=== PATIENT | female | born 1955 | race Caucasian/White ===

== ENCOUNTER 2018-03-21 21:34 | Outpatient (REF) | payer BC, SELFPAY ==
[2018-03-21 21:49] LABS: HCT 47.1 % (36.0-46.0); HGB 15.4 g/dL (12.0-15.5); Mean Corp. HGB Concentration 32.7 g/dL (32.0-36.0); Mean Corpuscular Hemoglobin 30.9 pg (27.0-33.0); Mean Corpuscular Volume 94.6 fL (80-95); Mean Platelet Volume 10.9 fL (8.0-11.0); Platelet Count 176 x1000/uL (130-400); RBC 4.98 m/cumm (4.00-5.20); RBC Distribution Width 12.8 % (11.7-14.6); White Blood Cell Count 5.67 k/cumm (4.4-10.8)
[2018-03-21 21:56] LABS: ALT 23 U/L (12-78); AST 20 U/L (15-37); Albumin 3.9 g/dL (3.4-5.0); Alkaline Phosphatase 46 U/L (46-116); Anion Gap 7.4 mmol/L (3-11); BUN 17 mg/dL (7-18); Bilirubin, Total 0.7 mg/dL (0.2-1.0); CO2 28.6 mmol/L (21.0-32.0); CREATININE 0.91 mg/dL (0.55-1.02); Chloride 104 mmol/L (98-107); Cholesterol 196 mg/dL (50-200); Glucose 76 mg/dL (70-100); HDL Cholesterol 80 mg/dL (40-60); LDL CHOLESTEROL 95 mg/dL (<100); Sodium 140 mmol/L (136-145); Total Protein 7.8 g/dL (6.4-8.2); Triglyceride 81 mg/dL (30-150)
== END 2018-03-21 21:54 ==
LOC: NCHCN 21:34
PROVIDERS: PCP Family Medicine; Visit Provider Family Medicine
DX: Z00.00 Encounter for general adult medical examination without abnormal findings (principal); Z85.3 Personal history of malignant neoplasm of breast; Z51.81 Encounter for therapeutic drug level monitoring; Z13.220 Encounter for screening for lipoid disorders
CPT/HCPCS: 80053; 80061; 83721; 85027

== ENCOUNTER 2018-08-08 10:07 | Outpatient (REF) | payer BC, SELFPAY ==
[2018-08-08 19:39] LABS: Magnesium 2.2 mg/dL (1.8-2.4); TSH (W/Ref FT4) 4.32 uIU/mL (0.358-3.74)
[2018-08-08 21:10] LABS: FREE T4 0.93 ng/dL (0.76-1.46)
== END 2018-08-08 10:27 ==
LOC: NCHCN 10:07
PROVIDERS: PCP Family Medicine; Visit Provider Family Medicine
DX: I49.1 Atrial premature depolarization (principal)
CPT/HCPCS: 83735; 84439; 84443

== ENCOUNTER 2018-10-07 09:57 | Outpatient (REF) | payer BC, SELFPAY ==
[2018-10-07 22:06] LABS: FREE T4 0.98 ng/dL (0.76-1.46); TSH (W/Ref FT4) 5.75 uIU/mL (0.36-3.74)
[2018-10-07 22:17] LABS: T4 9.2 ug/dL (4.5-12.5)
[2018-10-08 16:28] LABS: T3,Free 4.5 pg/ml (2.8-5.3)
[2018-10-08 16:37] LABS: T3, Total 179 ng/dl (97-169)
== END 2018-10-07 10:17 ==
LOC: NCHCN 09:57
PROVIDERS: PCP Family Medicine; Visit Provider Family Medicine
DX: R89.9 Unspecified abnormal finding in specimens from other organs, systems and tissues (principal)
CPT/HCPCS: 84436; 84439; 84443; 84480; 84481

== ENCOUNTER 2019-01-06 20:56 | Outpatient (REF) | payer BC, SELFPAY ==
[2019-01-06 21:37] LABS: TSH (W/Ref FT4) 4.73 uIU/mL (0.36-3.74)
[2019-01-06 21:59] LABS: FREE T4 0.97 ng/dL (0.76-1.46)
== END 2019-01-06 21:16 ==
LOC: NCHCN 20:56
PROVIDERS: PCP Family Medicine; Visit Provider Family Medicine
DX: R89.9 Unspecified abnormal finding in specimens from other organs, systems and tissues (principal)
CPT/HCPCS: 84439; 84443

== ENCOUNTER 2020-11-22 16:05 | Outpatient (REF) | payer MEDICARE, BC, SELFPAY ==
[2020-11-22 21:46] LABS: Anion Gap 10.2 mmol/L (3-11); BUN 14 mg/dL (7-18); CO2 27.8 mmol/L (21.0-32.0); CREATININE 0.8 mg/dL (0.55-1.02); Calcium 9.2 mg/dL (8.5-10.1); Chloride 104 mmol/L (98-107); Glucose 82 mg/dL (74-106); Potassium 4.1 mmol/L (3.5-5.1); Sodium 142 mmol/L (136-145); TSH (W/Ref FT4) 3.89 uIU/mL (0.36-3.74)
[2020-11-22 22:40] LABS: FREE T4 0.94 ng/dL (0.76-1.46)
== END 2020-11-22 16:06 | disposition home or self-care (01) ==
LOC: NCHCN 16:05
PROVIDERS: PCP Family Medicine; Visit Provider Family Medicine
DX: E03.9 Hypothyroidism, unspecified (principal); Z79.899 Other long term (current) drug therapy; Z00.00 Encounter for general adult medical examination without abnormal findings
CPT/HCPCS: 80048; 84439; 84443

== ENCOUNTER 2021-11-24 19:05 | Outpatient (REF) | payer MEDICARE, BC, SELFPAY ==
[2021-11-24 15:56] LABS: Glucose 89 mg/dL (74-106)
[2021-11-24 16:16] LABS: FREE T4 1.08 ng/dL (0.76-1.46)
== END 2021-11-24 19:06 | disposition home or self-care (01) ==
LOC: NCHCN 19:05
PROVIDERS: PCP Family Medicine; Visit Provider Family Medicine
DX: Z00.00 Encounter for general adult medical examination without abnormal findings (principal); E03.9 Hypothyroidism, unspecified
CPT/HCPCS: 82947; 84439; 84443

== ENCOUNTER 2022-11-30 10:45 | Outpatient (REF) | payer MEDICARE, BC, SELFPAY ==
[2022-11-30 15:26] LABS: HCT 48.5 % (36.0-46.0); MCH 30.7 pg (27.0-33.0); MCV 93 fL (80-95); MPV 10.2 fL (8.0-11.0); Platelet Count 229 10^3/uL (130-400); RBC 5.22 10^6/uL (3.93-5.22); RDW 12.4 % (11.7-14.6); RDW-SD 42.7 fL; WBC 6.33 10^3/uL (4.4-10.8)
[2022-11-30 16:07] LABS: ALT 31 U/L (14-59); AST 29 U/L (15-37); Albumin 3.9 g/dL (3.4-5.0); Alkaline Phosphatase 67 U/L (46-116); Anion Gap 8.4 mmol/L (3-11); BUN 14 mg/dL (7-18); Bilirubin, Total 0.7 mg/dL (0.2-1.0); CO2 28.6 mmol/L (21.0-32.0); CREATININE 0.7 mg/dL (0.55-1.02); Calcium 9.6 mg/dL (8.5-10.1); Calculated LDL 141 mg/dL (<100); Chloride 102 mmol/L (98-107); Cholesterol 241 mg/dL (<200); Estimated GFR 94.15 (mL/min/1.73m2); Glucose 82 mg/dL (74-106); HDL Cholesterol 75 mg/dL (40-60); Sodium 139 mmol/L (136-145); TSH (W/Ref FT4) 4.68 uIU/mL (0.36-3.74); Total Protein 8.1 g/dL (6.4-8.2); Triglyceride 126 mg/dL (<150)
== END 2022-11-30 10:46 | disposition home or self-care (01) ==
LOC: NCHCN 10:45
PROVIDERS: PCP Family Medicine; Visit Provider Family Medicine
DX: E03.9 Hypothyroidism, unspecified (principal); R79.89 Other specified abnormal findings of blood chemistry
CPT/HCPCS: 80053; 80061; 85027; 84439; 84443

== ENCOUNTER 2023-12-04 18:47 | Outpatient (REF) | payer MEDICARE, BC, SELFPAY ==
--- OUTSIDE RECORDS SUMMARY | 2023-12-04 18:52 | XMS_ITS ---
Author Organization Unknown Address [address] [place] [phone] Phone Care Team Providers Care Boiler Water Tester Name Role Phone GILLIAN Jimenez Attending Unavailable VON Roach Primary Unavailable Immunization Immunization Date Status Additional Notes Code Code System COVID-19, mRNA, LNP-S, PF, 1 00 mcg/0.5mL dose or 50 mcg/0.25mL dose 05/26/2020 Completed 207 CVX COVID-19, mRNA, LNP-S, PF, 1 00 mcg/0.5mL dose or 50 mcg/0.25mL dose 06/23/2020 Completed 207 CVX COVID-19, mRNA, LNP-S, PF, 1 00 mcg/0.5mL dose or 50 mcg/0.25mL dose 03/08/2021 Completed 207 CVX Results XR FOOT LT 3V MIN* - Complet ed: 05/10/2021 16:08 LOINC: LEFT FOOT - 3 VIEWS: Three weightbearing views of the left foot reveal no evidence of fracture nor diastasis of the Lisfranc joint. Hallux valgus is noted. Mild degenerative changes in the great toe metatarsophalangeal joint. No osseous lesions nor erosions. No pes planus. No inferior calcaneal spur. IMPRESSION: Hallux valgus. Dictated by: HITESH HORN MD Transcribed by: ROSA 05/10/21/14:13 D 05/10/2021 12:08:21 [id number] Electronically Reviewed and Signed By: ABHI HORN MD 05/10/21 14:26 Copy for: 185 HEALTH INFORMATION MGMT XR FOOT RT 3V MIN* - Complet ed: 05/10/2021 16:08 LOINC: RIGHT FOOT - 3 VIEWS: Three weightbearing views of the right foot reveal advanced uniform narrowing of the great toe metatarsophalangeal joint but without evidence of hallux valgus at this level. Other MTP joints appear unremarkable. No fracture nor diastasis of the Lisfranc joint. Dictated by: ABHI HORN MD Transcribed by: ROSA 05/10/2114:16 D 05/10/2021 12:10:15 [id number] Electronically Reviewed and Signed By: ABHI HORN MD 05/10/21 14:26 Copy for: 185 HEALTH INFORMATION MGMT Social History Type Status Start Date End Date Code Code Syst em Smoking History Never smoker (Never Smoked) 432082249 SNOMED CT Sex Female Hospital Discharge Instructions Should you have any questions prior to discharge, please contact a member of your healthcare team. If you have left the hospital and have any questions, please contact your primary care physician. Reason For Referral No Data Found Allergies and Adverse Reactions Allergy Substance Reaction Severity Start Date Concern Status Code Code System CLINDAMYCIN Hives (SNOMED-CT: 050223045) Active 2582 RxNorm TAPE Itching (SNOMED-CT: 114375176) Moderate Active POLYSPORIN Itching (SNOMED-CT: 639126374) Moderate Active 95111 RxNorm BAND-AID BRAND ADHESIVE BANDAGES Itching (SNOMED-CT: 445967544) Moderate Active 6387386 RxNorm Plan of Treatment MM SCREEN BILAT 08/23/2023 MM SCREEN BILAT 12/18/2021 PRE-OP TESTING 06/10/2021 PRE-OP COVID-19 TESTING 06/10/2021 PRE-OP TESTING 05/31/2021 PRE-OP COVID-19 TESTING 05/31/2021 Encounters Encounter Diagnosis Start Date Code Code Sys tem 05/10/2021 [id number] SNOMED-CT Personal Care Team Section Performer Name Performer Role Active Date Inactive Da te
--- OUTSIDE RECORDS SUMMARY | 2023-12-04 18:53 | XMS_ITS ---
Author Organization Unknown Address [address] [place] [address] [phone] Phone Care Team Providers Care Credit Director Name Role Phone GILLIAN Jimenez Attending Unavailable MALIA Neumann INDEPENDENT CROP CONSULTANT Unavailable VON Roach Primary Unavailable Immunization Immunization Date Status Additional Notes Code Code System COVID-19, mRNA, LNP-S, PF, 1 00 mcg/0.5mL dose or 50 mcg/0.25mL dose 05/26/2020 Completed 207 CVX COVID-19, mRNA, LNP-S, PF, 1 00 mcg/0.5mL dose or 50 mcg/0.25mL dose 06/23/2020 Completed 207 CVX COVID-19, mRNA, LNP-S, PF, 1 00 mcg/0.5mL dose or 50 mcg/0.25mL dose 03/08/2021 Completed 207 CVX Results SED RATE* - Collect Date/Paul e: 06/13/2021 07:30 ID: [id number] [address] [place] [address], [address] LOINC: 4537-7 Test Value Unit Reference Range Code Code System Flag SED. RATE 16 mm/hr L=0 H=30 4537-7 LOINC C REACTIVE PROTEIN HIGH SENS ITIVITY* - Collect Date/Time: 06/13/2021 07:30 ID: [id number] [address] [place] [address], [address] LOINC: 50108-9 Test Value Unit Reference Range Code Code System Flag CRP-HIGH SENS. 4.80 mg/L L=0.00 H=3.00 17620-7 LOINC H CRP-HIGH SENS 0.48 mg/dL L=0.00 H=0.30 40725-8 LOINC H XR C-ARM FOOT 2V RT NO CHARG E - Completed: 06/13/2021 11:26 LOINC: FLUOROSCOPY:Fluoroscopy was provided for Dr. Mc. Please see Procedure Note for details. Fluoro time 4.43 sec/Cumulative dose 0.075 mGy Dictated by: CEO MENDEZ BROOKE MD Transcribed by: RAJANI 06/13/2112:20 D Sunday, June 13, 2021 11:44:08 AM [id number] Electronically Reviewed and Signed By: MENDEZ BROOKE MD 06/13/21 12:37 Copy for: VON Roach via fax Copy for: 185 HEALTH INFORMATION MGMT DISCHARGED XR FOOT RT 3V MIN* - Complet ed: 06/13/2021 11:32 LOINC: RIGHT FOOT -3 VIEWS PORTABLY :Comparison is May 09. The patient is s/p bunionectomy at the medial 1st metatarsal head. There is mild residual post- surgical air in the soft tissues. Dictated by: CEO MENDEZ BROOKE MD Transcribed by: RAJANI 06/13/2111:25 D Sunday, June 13, 2021 9:21:55 AM [id number] Electronically Reviewed and Signed By: MENDEZ BROOKE MD 06/13/21 11:47 Copy for: VON Roach via fax Copy for: 185 HEALTH INFORMATION MGMT DISCHARGED Social History Type Status Start Date End Date Code Code Syst em Smoking History Never smoker (Never Smoked) 800693209 SNOMED CT Sex Female Vital Signs Vital Sign Value Unit [place] Value [place] Unit Date/Time Recent/Initial? Code Code System Body Mass Index 20.18 kg/m2 05/30/2021 11:24 Initial 07887 -5 LOINC Systolic Blood Pressure 158 mm[Hg] 06/13/2021 09:43 Initial 8480- 6 LOINC Diastolic Blood Pressure 81 mm[Hg] 06/13/2021 09:43 Initial 8462- 4 LOINC Body Surface Area 1.62 m2 05/30/2021 11:24 Initial 3140- 1 LOINC Height 167.640 0 cm 66.00 in 05/30/2021 11:24 Initial 8302- 2 LOINC O2 Saturation 100 % 2021 09:43 Initial 80030 -5 LOINC Pulse 87.0 /min 06/13/2021 09:43 Initial 8867- 4 LOINC Respiration 18 /min 06/14/19 09:43 Initial 9279- 1 LOINC Temperature 36.0 Annette 96.8 F 06/14/19 09:43 Initial 8310- 5 LOINC Weight 56.70 kg 125.00 lbs 05/30/2021 11:24 Initial 71277 -7 LOINC Hospital Discharge Instructions Should you have any questions prior to discharge, please contact a member of your healthcare team. If you have left the hospital and have any questions, please contact your primary care physician. Reason For Referral No Data Found Procedures Procedure Name Date Status Code Code Syste m Hallux Rigidus w/Cheilectomy 1st MP Jt w/o Implt 06/13/2021 completed 84851 CPT Anesthesia, Open Proc, Bones , Lower Leg/Ankle/Foot; NOS 06/13/2021 completed 69262 CPT Allergies and Adverse Reactions Allergy Substance Reaction Severity Start Date Concern Status Code Code System CLINDAMYCIN Hives (SNOMED-CT: 336887188) Active 2582 RxNorm TAPE Itching (SNOMED-CT: 324098735) Moderate Active POLYSPORIN Itching (SNOMED-CT: 259856040) Moderate Active 02836 RxNorm BAND-AID BRAND ADHESIVE BANDAGES Itching (SNOMED-CT: 852074135) Moderate Active 3002721 RxNorm Plan of Treatment MM SCREEN BILAT 08/23/2023 MM SCREEN BILAT 12/18/2021 PRE-OP TESTING 06/10/2021 PRE-OP COVID-19 TESTING 06/10/2021 PRE-OP TESTING 05/31/2021 PRE-OP COVID-19 TESTING 05/31/2021 Encounters Encounter Diagnosis Start Date Code Code Sys tem Hallux rigidus, right foot 06/13/2021 S NOMED-CT Personal Care Team Section Performer Name Performer Role Active Date Inactive Da te
--- OUTSIDE RECORDS SUMMARY | 2023-12-04 18:53 | XMS_ITS ---
Author Organization Unknown Address [address], [place] [phone] Phone Care Team Providers Care Plate Shear Operator Name Role Phone GILLIAN Jimenez Attending Unavailable [...] mcg/0.25mL dose 03/08/2021 Completed 207 CVX Results CBC W/ DIFFERENTIAL* - Colle ct Date/Time: 05/31/2021 11:04 [facility] ID: [id number] [address] [place] [address], [address] LOINC: 01654-1 Test Value Unit Reference Range Code Code System Flag WBC 6.89 th/cmm L=5.00 H=10.00 6690-2 LOINC NEUT % 58.3 % L=40.0 H=80.0 LYMPH % 28.2 % L=10.0 H=50.0 MONO % 7.3 % L=2.0 H=12.0 46370-5 LOINC EOS % 4.6 % L=0.0 H=8.0 BASO % 1.2 % L=0.0 H=3.0 IG % 0.4 % L=0.0 H=1.1 2514-8 LOINC NRBC % 0.0 % L=0.0 H=0.0 34993-2 LOINC NEUT abs count 4.0 th/cmm L=1.6 H=8.4 751-8 LOINC LYMPH abs count 1.9 th/cmm L=1.5 H=4.0 731-0 LOINC MONO abs count 0.5 th/cmm L=0.2 H=1.0 742-7 LOINC EOS abs count 0.3 th/cmm L=0.0 H=0.5 711-2 LOINC BASO abs count 0.1 th/cmm L=0.0 H=0.2 704-7 LOINC IG abs count 0.0 th/cmm L=0.0 H=0.1 96341-5 LOINC NRBC abs count 0.0 mil/cmm L=0.0 H=0.0 00507-8 LOINC RBC 5.11 mil/cmm L=3.90 H=5.40 789-8 LOINC HEMOGLOBIN 16.0 gm/dL L=12.0 H=16.0 718-7 LOINC HEMATOCRIT 48 % L=37 H=47 4544-3 LOINC H MCV 93 fL L=82 H=92 787-2 LOINC H MCH 31.3 pg L=27.0 H=31.0 785-6 LOINC H MCHC 33.6 % L=32.0 H=36.0 786-4 LOINC RDW-SD 42.3 fL L=39.0 H=49.0 788-0 LOINC PLATELET COUNT 220 th/cmm L=150 H=450 777-3 LOINC BASIC METABOLIC PANEL (BMP) - Collect Date/Time: 05/31/2021 11:04 [facility] ID: [id number] [address] [place], [place], [address] LOINC: 85028-7 Test Value Unit Reference Range Code Code System Flag GLUCOSE 94 mg/dL L=70 H=116 2345-7 LOINC BUN 14 mg/dL L=6 H=25 3094-0 LOINC CREATININE 0.74 mg/dL L=0.51 H=0.95 2160-0 LOINC SODIUM SERUM 137 mmol/L L=136 H=145 2951-2 LOINC POTASSIUM SERUM 4.2 mmol/L L=3.4 H=5.2 2823-3 LOINC CHLORIDE SERUM 101 mmol/L L=96 H=110 2075-0 LOINC CARBON DIOXIDE (CO2) 28 mmol/L L=22 H=34 2028-9 LOINC ANION GAP 8.4 mmol/L 97352-0 LOINC CALCIUM SERUM 9.4 mg/dL L=8.2 H=10.2 15905-1 LOINC AGE 65 years eGFR (non-Afr.Amer.) 79 mL/min 04065-6 LOINC eGFR (Afr-Swedish) 95 mL/min 99020-1 LOINC Social History Type Status Start Date End Date Code Code Syst em Smoking History Never smoker (Never Smoked) 691753060 SNOMED CT Sex Female Hospital Discharge Instructions Should you have any questions prior to discharge, please contact a member of your healthcare team. If you have left the hospital and have any questions, please contact your primary care physician. Reason For Referral No Data Found Allergies and Adverse Reactions Allergy Substance Reaction Severity Start Date Concern Status Code Code System CLINDAMYCIN Hives (SNOMED-CT: 094626258) Active 2582 RxNorm TAPE Itching (SNOMED-CT: 247395339) Moderate Active POLYSPORIN Itching (SNOMED-CT: 463988643) Moderate Active 06531 RxNorm BAND-AID BRAND ADHESIVE BANDAGES Itching (SNOMED-CT: 800979980) Moderate Active 8970176 RxNorm Plan of Treatment MM SCREEN BILAT 08/23/2023 MM SCREEN BILAT 12/18/2021 PRE-OP TESTING 06/10/2021 PRE-OP COVID-19 TESTING 06/10/2021 PRE-OP TESTING 05/31/2021 PRE-OP COVID-19 TESTING 05/31/2021 Encounters Encounter Diagnosis Start Date Code Code Sys tem Encounter for other preprocedural examination 06/01/19 22 SNOMED-CT Personal Care Team Section Performer Name Performer Role Active Date Inactive Da te
--- OUTSIDE RECORDS SUMMARY | 2023-12-04 18:53 | XMS_ITS ---
Author Organization Unknown Address [address] [place] [phone] Phone Care Team Providers Care Architecture Internship Name Role Phone GILLIAN Jimenez Attending Unavailable [...] 50 mcg/0.25mL dose 03/08/2021 Completed 207 CVX Social History Type Status Start Date End Date Code Code Syst em Smoking History Never smoker (Never Smoked) 566440819 SNOMED CT Sex Female Hospital Discharge Instructions Should you have any questions prior to discharge, please contact a member of your healthcare team. If you have left the hospital and have any questions, please contact your primary care physician. Reason For Referral No Data Found Allergies and Adverse Reactions Allergy Substance Reaction Severity Start Date Concern Status Code Code System CLINDAMYCIN Hives (SNOMED-CT: 859726301) Active 2582 RxNorm TAPE Itching (SNOMED-CT: 561533906) Moderate Active POLYSPORIN Itching (SNOMED-CT: 352058056) Moderate Active 38595 RxNorm BAND-AID BRAND ADHESIVE BANDAGES Itching (SNOMED-CT: 973042704) Moderate Active 1634667 RxNorm Plan of Treatment MM SCREEN BILAT 08/23/2023 MM SCREEN BILAT 12/18/2021 PRE-OP TESTING 06/10/2021 PRE-OP COVID-19 TESTING 06/10/2021 PRE-OP TESTING 05/31/2021 PRE-OP COVID-19 TESTING 05/31/2021 Encounters Encounter Diagnosis Start Date Code Code Sys tem Postoperative care 06/16/2021 975386075 SNOMED-CT Personal Care Team Section Performer Name Performer Role Active Date Inactive Da te
--- OUTSIDE RECORDS SUMMARY | 2023-12-04 18:53 | XMS_ITS ---
Author Organization Unknown Address [address] [place], [place] [phone] Phone Care Team Providers Care Kiln Burner Helper Name Role Phone GILLIAN Jimneez Attending Unavailable VON Roach Primary Unavailable Immunization [...] mcg/0.25mL dose 03/08/2021 [address] [facility] [place] ect Date/Time: 06/10/2021 09:40 [facility] ID: [id number] [address] [place], [place], [id number] LOINC: 58566-4 Test Value Unit Reference Range Code Code System Flag Tier- PRE-OP 15033-3 LOINC SARS COV2 RNA: NEGATIVE REFERENCE RANGE: NEGAT 37230-6 L OINC Social History Type Status Start Date End Date Code Code Syst em Smoking History Never smoker (Never Smoked) 531427579 SNOMED CT Sex Female Hospital Discharge Instructions Should you have any questions prior to discharge, please contact a member of your healthcare team. If you have left the hospital and have any questions, please contact your primary care physician. Reason For Referral No Data Found Allergies and Adverse Reactions Allergy Substance Reaction Severity Start Date Concern Status Code Code System CLINDAMYCIN Hives (SNOMED-CT: 794354563) Active 2582 RxNorm TAPE Itching (SNOMED-CT: 806232895) Moderate Active POLYSPORIN Itching (SNOMED-CT: 353285623) Moderate Active 11891 RxNorm BAND-AID BRAND ADHESIVE BANDAGES Itching (SNOMED-CT: 495228897) Moderate Active 8428880 RxNorm Plan of Treatment MM SCREEN BILAT 08/23/2023 MM SCREEN BILAT 12/18/2021 PRE-OP TESTING 06/10/2021 PRE-OP COVID-19 TESTING 06/10/2021 PRE-OP TESTING 05/31/2021 PRE-OP COVID-19 TESTING 05/31/2021 Encounters Encounter Diagnosis Start Date Code Code Sys tem Pre-surgery testing 06/10/2021 586512488 SNOMED-C T Personal Care Team Section Performer Name Performer Role Active Date Inactive Da te
--- OUTSIDE RECORDS SUMMARY | 2023-12-04 18:54 | XMS_ITS ---
Author Organization Unknown Address [address] [place] [phone] Phone Care Team Providers Care Chicken Raiser Name Role Phone GILLIAN Jimenez Attending Unavailable [...] em Smoking History Never smoker (Never Smoked) 808045735 SNOMED CT Sex Female Hospital Discharge Instructions Should you have any questions prior to discharge, please contact a member of your healthcare team. If you have left the hospital and have any questions, please contact your primary care physician. Reason For Referral No Data Found Allergies and Adverse Reactions Allergy Substance Reaction Severity Start Date Concern Status Code Code System CLINDAMYCIN Hives (SNOMED-CT: 237782659) Active 2582 RxNorm TAPE Itching (SNOMED-CT: 017631451) Moderate Active POLYSPORIN Itching (SNOMED-CT: 126297776) Moderate Active 17867 RxNorm BAND-AID BRAND ADHESIVE BANDAGES Itching (SNOMED-CT: 028337037) Moderate Active 0944371 RxNorm Plan of Treatment MM SCREEN BILAT 08/23/2023 MM SCREEN BILAT 12/18/2021 PRE-OP TESTING 06/10/2021 PRE-OP COVID-19 TESTING 06/10/2021 PRE-OP TESTING 05/31/2021 PRE-OP COVID-19 TESTING 05/31/2021 Encounters Encounter Diagnosis Start Date Code Code Sys tem Encounter for other orthopedic aftercare 08/01/2021 SNOMED-CT Personal Care Team Section Performer Name Performer Role Active Date Inactive Da te
--- OUTSIDE RECORDS SUMMARY | 2023-12-04 18:54 | XMS_ITS ---
Author Organization Unknown Address [address] [place] [address] [phone] Phone Care Team Providers Care Seat Cover Maker Name Role Phone GILLIAN Jimenez Attending Unavailable [...] em Smoking History Never smoker (Never Smoked) 765912277 SNOMED CT Sex Female Hospital Discharge Instructions Should you have any questions prior to discharge, please contact a member of your healthcare team. If you have left the hospital and have any questions, please contact your primary care physician. Reason For Referral No Data Found Allergies and Adverse Reactions Allergy Substance Reaction Severity Start Date Concern Status Code Code System CLINDAMYCIN Hives (SNOMED-CT: 959305820) Active 2582 RxNorm TAPE Itching (SNOMED-CT: 931404611) Moderate Active POLYSPORIN Itching (SNOMED-CT: 892940434) Moderate Active 36625 RxNorm BAND-AID BRAND ADHESIVE BANDAGES Itching (SNOMED-CT: 461719332) Moderate Active 9620546 RxNorm Plan of Treatment MM SCREEN BILAT 08/23/2023 MM SCREEN BILAT 12/18/2021 PRE-OP TESTING 06/10/2021 PRE-OP COVID-19 TESTING 06/10/2021 PRE-OP TESTING 05/31/2021 PRE-OP COVID-19 TESTING 05/31/2021 Encounters Encounter Diagnosis Start Date Code Code Sys tem Follow-up orthopedic assessment 08/22/2021 069854324 SNOMED-CT Personal Care Team Section Performer Name Performer Role Active Date Inactive Da te
--- OUTSIDE RECORDS SUMMARY | 2023-12-04 18:54 | XMS_ITS ---
Author Organization Unknown Address [address] [place] [phone] Phone Care Team Providers Care Fire Prevention Research Engineer Name Role Phone GILLIAN Jimenez Attending Unavailable [...] em Smoking History Never smoker (Never Smoked) 792464636 SNOMED CT Sex Female Hospital Discharge Instructions Should you have any questions prior to discharge, please contact a member of your healthcare team. If you have left the hospital and have any questions, please contact your primary care physician. Reason For Referral No Data Found Allergies and Adverse Reactions Allergy Substance Reaction Severity Start Date Concern Status Code Code System CLINDAMYCIN Hives (SNOMED-CT: 637178726) Active 2582 RxNorm TAPE Itching (SNOMED-CT: 434377199) Moderate Active POLYSPORIN Itching (SNOMED-CT: 583957519) Moderate Active 42973 RxNorm BAND-AID BRAND ADHESIVE BANDAGES Itching (SNOMED-CT: 925756159) Moderate Active 6816753 RxNorm Plan of Treatment MM SCREEN BILAT 08/23/2023 MM SCREEN BILAT 12/18/2021 PRE-OP TESTING 06/10/2021 PRE-OP COVID-19 TESTING 06/10/2021 PRE-OP TESTING 05/31/2021 PRE-OP COVID-19 TESTING 05/31/2021 Encounters Encounter Diagnosis Start Date Code Code Sys tem Postoperative care 06/27/2021 061851522 SNOMED-CT Personal Care Team Section Performer Name Performer Role Active Date Inactive Da te
--- OUTSIDE RECORDS SUMMARY | 2023-12-04 18:55 | XMS_ITS ---
Author Organization Unknown Address [address] [place] [phone] Phone Care Team Providers Care Field Recorder Name Role Phone GILLIAN Jimenez Attending Unavailable [...] em Smoking History Never smoker (Never Smoked) 851769448 SNOMED CT Sex Female Hospital Discharge Instructions Should you have any questions prior to discharge, please contact a member of your healthcare team. If you have left the hospital and have any questions, please contact your primary care physician. Reason For Referral No Data Found Allergies and Adverse Reactions Allergy Substance Reaction Severity Start Date Concern Status Code Code System CLINDAMYCIN Hives (SNOMED-CT: 122920128) Active 2582 RxNorm TAPE Itching (SNOMED-CT: 759249434) Moderate Active POLYSPORIN Itching (SNOMED-CT: 791777235) Moderate Active 40830 RxNorm BAND-AID BRAND ADHESIVE BANDAGES Itching (SNOMED-CT: 253237748) Moderate Active 3921357 RxNorm Plan of Treatment MM SCREEN BILAT 08/23/2023 MM SCREEN BILAT 12/18/2021 PRE-OP TESTING 06/10/2021 PRE-OP COVID-19 TESTING 06/10/2021 PRE-OP TESTING 05/31/2021 PRE-OP COVID-19 TESTING 05/31/2021 Encounters Encounter Diagnosis Start Date Code Code Sys tem 11/15/2021 [id number] SNOMED-CT Personal Care Team Section Performer Name Performer Role Active Date Inactive Da te
--- OUTSIDE RECORDS SUMMARY | 2023-12-04 18:55 | XMS_ITS ---
Author Organization Unknown Address [address] [place] [address] [phone] Phone Care Team Providers Care Construction Supervisor/Carpenter Name Role Phone JOSE Rico Attending Unavailable VON Roach Primary Unavailable Immunization [...] em Smoking History Never smoker (Never Smoked) 346411921 SNOMED CT Sex Female Hospital Discharge Instructions Should you have any questions prior to discharge, please contact a member of your healthcare team. If you have left the hospital and have any questions, please contact your primary care physician. Reason For Referral No Data Found Allergies and Adverse Reactions Allergy Substance Reaction Severity Start Date Concern Status Code Code System CLINDAMYCIN Hives (SNOMED-CT: 417306917) Active 2582 RxNorm TAPE Itching (SNOMED-CT: 315157608) Moderate Active POLYSPORIN Itching (SNOMED-CT: 815199695) Moderate Active 38981 RxNorm BAND-AID BRAND ADHESIVE BANDAGES Itching (SNOMED-CT: 190439840) Moderate Active 8348971 RxNorm Plan of Treatment MM SCREEN BILAT 08/23/2023 MM SCREEN BILAT 12/18/2021 PRE-OP TESTING 06/10/2021 PRE-OP COVID-19 TESTING 06/10/2021 PRE-OP TESTING 05/31/2021 PRE-OP COVID-19 TESTING 05/31/2021 Encounters Encounter Diagnosis Start Date Code Code Sys tem Palpitations 01/21/2023 58484384 SNOMED-CT Personal Care Team Section Performer Name Performer Role Active Date Inactive Da te
--- OUTSIDE RECORDS SUMMARY | 2023-12-04 18:55 | XMS_ITS ---
Author Organization Unknown Address [address] [place] [address] [phone] Phone Care Team Providers Care Cullet Washer Name Role Phone ISAMAR SHIN Attending Unavailable VON Roach Primary Unavailable Immunization [...] mcg/0.25mL dose 03/08/2021 Completed 207 CVX Results MM SCREENING BILAT MAMMO W T CARRIE W CAD - Completed: 12/18/2021 10:13 [facility] [place], [place] [address] PACS PEST CONTROL WORKER REPORT Patient Name: JUWAN PETERS MRN: Sex: : Age: [id number] F 1955 66 Account: Accession: Admit: StayType: [id number] 12/18/2021 O/P Ordered: Order ID: Submitted: Ordering Provider: 12/18/2021 09:54 [id number] [facility] ALEIDA PENN Completed: Technologist: Resulted: 12/18/2021 10:13 BMM 12/18/2021 10:38 Study Description: MM SCREENING BILAT MAMMO W ZULMA W CAD Study Reason: SCREENING TECHNIQUE: Bilateral full field digital CC and MLO mammographic images were obtained with 3D tomosynthesis and utilizing computer aided detection (CAD). COMPARISON: Prior mammograms were reviewed. Right lumpectomy for malignancy in 2013 FINDINGS: There has been no significant change in the appearance and distribution of the fibroglandular tissue. There is continued stable appearance of the right breast lumpectomy site including the scarring-architectural distortion and dystrophic calcification. No new significant masses nor malignant appearing microcalcifications in either breast. There is no significant architectural distortion nor skin thickening-retraction. IMPRESSION: 1. Stable benign findings. No radiographic evidence of malignancy Stable appearance of the right breast lumpectomy site. BiRads Category: 2-benign findings. Breast Density Category: C] [Breast density Category C or D implies that the patient has dense breast tissue. Dense breast tissue can make it harder to find cancer on a mammogram. Dense breast tissue is also associated with an increased risk of breast cancer. This information about the result of the mammogram report was provided to the patient to raise their awareness. Use this report when you speak with the patient about their risks for breast cancer, which includes their family history. At that time, you may recommend additional screening tests (Ultrasound or MRI) as these tests may add significant information. A negative radiographic report should not delay biopsy if a dominant or clinically suspicious mass is present. Up to ten percent of cancers are not identified on mammography. A negative report may reinforce clinical impression. Adenosis and dense breasts may obscure an underlying neoplasm. False positive reports average 6 to 10%. Patient will receive a letter notifying them of these results. Report Digitally Signed by Tam Hernandez on 12/18/2021 10:38 AM EDT Social History Type Status Start Date End Date Code Code Syst em Smoking History Never smoker (Never Smoked) [id number] SNOMED CT Sex Female Hospital Discharge Instructions Should you have any questions prior to discharge, please contact a member of your healthcare team. If you have left the hospital and have any questions, please contact your primary care physician. Reason For Referral No Data Found Allergies and Adverse Reactions Allergy Substance Reaction Severity Start Date Concern Status Code Code System CLINDAMYCIN Hives (SNOMED-CT: 136284343) Active 2582 RxNorm TAPE Itching (SNOMED-CT: 871866416) Moderate Active POLYSPORIN Itching (SNOMED-CT: 727130551) Moderate Active 91578 RxNorm BAND-AID BRAND ADHESIVE BANDAGES Itching (SNOMED-CT: 958297058) Moderate Active 2352826 RxNorm Plan of Treatment MM SCREEN BILAT 08/23/2023 MM SCREEN BILAT 12/18/2021 PRE-OP TESTING 06/10/2021 PRE-OP COVID-19 TESTING 06/10/2021 PRE-OP TESTING 05/31/2021 PRE-OP COVID-19 TESTING 05/31/2021 Encounters Encounter Diagnosis Start Date Code Code Sys tem Encounter for screening mamm ogram for malignant neoplasm of breast 12/18/2021 SNOMED-CT Personal Care Team Section Performer Name Performer Role Active Date Inactive Da te
--- OUTSIDE RECORDS SUMMARY | 2023-12-04 18:56 | XMS_ITS ---
Author Organization Unknown Address [address] [place] [address] [phone] Phone Care Team Providers Care Ross Furnace Operator Name Role Phone ISAMAR SHIN Attending Unavailable VON REDDY MD Primary Unavailable Results MM DIGITAL SCR W ZULMA BILATE RAL - Completed: 12/09/2020 10:13 LOINC: Digital mammograms were inte rpreted according to the usual protocol including computer analysis with CADx system including tomosynthesis. Both CC and MLO views of both breasts were performed and compared to prior mammograms dating back to 2014, the most recent being June 2019. The patient underwent right breast lumpectomy for malignancy in 2013 followed by radiation therapy. There is scarring and dystrophic calcification at the right breast lumpectomy site again noted. This has slightly further progressed. There is also a benign macrocalcification anteriorly in the right breast again noted. Benign microcalcification group in the left breast is again noted. IMPRESSION: 1. Scarring and dystrophic calcification again noted at the right breast lumpectomy site. 2. Benign left breast findings. BI-RADS Assessment: Category 2. Benign findings. BREAST DENSITY: c. The breasts are heterogeneously dense which may obscure small masses. TECHNOLOGIST: RT Silvano (R) (M) Dictated by: HITESH HORN M.D. RADIOLOGIST Transcribed by: SUKUMAR 12/10/2008:42 D 12/09/2020 09:02:46 [id number] Electronically Reviewed and Signed By: ADALI DENTON M.D. RADIOLOGIST 12/12/20 08:55 Copy for: ISAMAR SHIN via fax Copy for: VON REDDY MD via link Social History Type Status Start Date End Date Code Code Syst em Smoking History Never smoker (Never Smoked) [id number] SNOMED CT Sex Female Hospital Discharge Instructions Should you have any questions prior to discharge, please contact a member of your healthcare team. If you have left the hospital and have any questions, please contact your primary care physician. Reason For Referral No Data Found Allergies and Adverse Reactions Allergy Substance Reaction Severity Start Date Concern Status Code Code System CLINDAMYCIN Hives (SNOMED-CT: 617144665) Active 2582 RxNorm TAPE Itching (SNOMED-CT: 069630777) Moderate Active POLYSPORIN Itching (SNOMED-CT: 878747073) Moderate Active 46007 RxNorm BAND-AID BRAND ADHESIVE BANDAGES Itching (SNOMED-CT: 970999711) Moderate Active 9293074 RxNorm Plan of Treatment MM SCREEN BILAT 08/23/2023 MM SCREEN BILAT 12/18/2021 PRE-OP TESTING 06/10/2021 PRE-OP COVID-19 TESTING 06/10/2021 PRE-OP TESTING 05/31/2021 PRE-OP COVID-19 TESTING 05/31/2021 Encounters Encounter Diagnosis Start Date Code Code Sys tem Encounter for screening mamm ogram for malignant neoplasm of breast 12/09/2020 SNOMED-CT Personal Care Team Section Performer Name Performer Role Active Date Inactive Da te
--- OUTSIDE RECORDS SUMMARY | 2023-12-04 18:56 | XMS_ITS ---
Author Organization Unknown Address [address] [place] [address] [phone] Phone Care Team Providers Care Environmental Health Inspector Name Role Phone VON Roach Attending Unavailable Immunization Immunization Date Status Additional Notes Code Code System COVID-19, mRNA, LNP-S, PF, 1 00 mcg/0.5mL dose or 50 mcg/0.25mL dose 05/26/2020 Completed 207 CVX COVID-19, mRNA, LNP-S, PF, 1 00 mcg/0.5mL dose or 50 mcg/0.25mL dose 06/23/2020 Completed 207 CVX COVID-19, mRNA, LNP-S, PF, 1 00 mcg/0.5mL dose or 50 mcg/0.25mL dose 03/08/2021 Completed 207 CVX Results *MM SCREENING BILAT MAMMO W ZULMA W CAD - Completed: 08/23/2023 10:13 LOINC: [facility] [place], [place] [id number] [place] [address] PACS NET FISHER REPORT Patient Name: JUWAN PETERS MRN: Sex: : Age: [id number] O 1955 67 Account: Accession: Admit: StayType: [id number] 08/23/2023 O Ordered: Order ID: Submitted: Ordering Provider: 08/23/2023 09:47 [id number] BARRY BROOKS Completed: Technologist: Resulted: 08/23/2023 10:03 BMM 08/23/2023 10:26 FINAL REPORT EXAM: MM SCREENING BILAT MAMMO W ZULMA W CAD CLINICAL HISTORY: Reason for Mammo: Screening. TECHNIQUE: Bilateral full field digital CC and MLO mammographic images were obtained with 3D tomosynthesis and utilizing computer aided detection (CAD). COMPARISON: Prior mammograms were reviewed. Patient underwent right breast lumpectomy for malignancy in 2013. FINDINGS: There has been no significant change in the appearance and distribution of the fibroglandular tissue. Right breast lumpectomy site remains stable. There are no new spiculated masses nor malignant appearing microcalcification groups. There is no significant new architectural distortion nor skin thickening-retraction. IMPRESSION: Stable benign-appearing findings. No radiographic evidence of malignancy. BI-RADS Category 2 - Benign Findings Breast Density - Category C - Heterogeneously dense Breast density Category C or D implies that [...] a letter notifying them of these results. Electronically signed by: Tam Hernandez Dictated: 08/23/2023 10:26 Social History Type Status Start Date End Date Code Code Syst em Smoking History Never smoker (Never Smoked) [id number] SNOMED CT Sex Female Hospital Discharge Instructions Should you have any questions prior to discharge, please contact a member of your healthcare team. If you have left the hospital and have any questions, please contact your primary care physician. Reason For Referral No Data Found Allergies and Adverse Reactions Allergy Substance Reaction Severity Start Date Concern Status Code Code System CLINDAMYCIN Hives (SNOMED-CT: 088832950) Active 2582 RxNorm TAPE Itching (SNOMED-CT: 035762554) Moderate Active POLYSPORIN Itching (SNOMED-CT: 688945942) Moderate Active 32045 RxNorm BAND-AID BRAND ADHESIVE BANDAGES Itching (SNOMED-CT: 869203105) Moderate Active 1012543 RxNorm Plan of Treatment MM SCREEN BILAT 08/23/2023 MM SCREEN BILAT 12/18/2021 PRE-OP TESTING 06/10/2021 PRE-OP COVID-19 TESTING 06/10/2021 PRE-OP TESTING 05/31/2021 PRE-OP COVID-19 TESTING 05/31/2021 Encounters Encounter Diagnosis Start Date Code Code Sys tem Screening mammography 08/23/2023 [id number] SNOMED -CT Personal Care Team Section Performer Name Performer Role Active Date Inactive Da te
--- OUTSIDE RECORDS SUMMARY | 2023-12-04 18:56 | XMS_ITS ---
Author Organization Unknown Address [address] [place] [address] [phone] Phone Care Team Providers Care Ethnographer Name Role Phone JOSE Rico MD Attending Unavailable VON REDDY MD Primary Unavailable Social History Type Status Start Date End Date Code Code Syst em Smoking History Never smoker (Never Smoked) 475910381 SNOMED CT Sex Female Hospital Discharge Instructions Should you have any questions prior to discharge, please contact a member of your healthcare team. If you have left the hospital and have any questions, please contact your primary care physician. Reason For Referral No Data Found Allergies and Adverse Reactions Allergy Substance Reaction Severity Start Date Concern Status Code Code System CLINDAMYCIN Hives (SNOMED-CT: 974314237) Active 2582 RxNorm TAPE Itching (SNOMED-CT: 702595952) Moderate Active POLYSPORIN Itching (SNOMED-CT: 061915368) Moderate Active 85771 RxNorm BAND-AID BRAND ADHESIVE BANDAGES Itching (SNOMED-CT: 393716897) Moderate Active 3034511 RxNorm Plan of Treatment MM SCREEN BILAT 08/23/2023 MM SCREEN BILAT 12/18/2021 PRE-OP TESTING 06/10/2021 PRE-OP COVID-19 TESTING 06/10/2021 PRE-OP TESTING 05/31/2021 PRE-OP COVID-19 TESTING 05/31/2021 Encounters Encounter Diagnosis Start Date Code Code Sys tem Unspecified atrial fibrillation 12/05/2020 SNOMED-CT Personal Care Team Section Performer Name Performer Role Active Date Inactive Da te
== END 2023-12-04 18:48 | disposition home or self-care (01) ==
LOC: NCHCN 18:47
PROVIDERS: PCP Family Medicine; Visit Provider Internal Medicine
DX: R39.9 Unspecified symptoms and signs involving the genitourinary system (principal); B96.29 Other Escherichia coli [E. coli] as the cause of diseases classified elsewhere; R82.89 Other abnormal findings on cytological and histological examination of urine
CPT/HCPCS: 87077; 87086; 87186

== ENCOUNTER 2023-12-13 10:17 | Outpatient (REF) | payer MEDICARE, BC, SELFPAY ==
[2023-12-13 16:02] LABS: ALT 35 U/L (14-59); AST 25 U/L (15-37); Albumin 4.3 g/dL (3.4-5.0); Alkaline Phosphatase 82 U/L (46-116); Anion Gap 6.7 mmol/L (3-11); BUN 9 mg/dL (7-18); Bilirubin, Total 0.66 mg/dL (0.2-1.0); CO2 29.3 mmol/L (21.0-32.0); CREATININE 0.9 mg/dL (0.55-1.02); Calcium 9.9 mg/dL (8.5-10.1); Calculated LDL 144 mg/dL (<100); Chloride 103 mmol/L (98-107); Cholesterol 242 mg/dL (<200); Glucose 92 mg/dL (74-106); HDL Cholesterol 81 mg/dL (40-60); Potassium 4.8 mmol/L (3.5-5.1); Sodium 139 mmol/L (136-145); Total Protein 8.5 g/dL (6.4-8.2); Triglyceride 87 mg/dL (<150); Vitamin D 25 Total 35.1 ng/mL (30-100)
== END 2023-12-13 10:18 | disposition home or self-care (01) ==
LOC: NCHCN 10:17
PROVIDERS: PCP Family Medicine; Visit Provider Family Medicine
DX: I10 Essential (primary) hypertension (principal); M81.0 Age-related osteoporosis without current pathological fracture
CPT/HCPCS: 80053; 80061; 82306

== ENCOUNTER 2024-12-16 16:32 | Outpatient (REF) | payer MEDICARE, BC, SELFPAY ==
[2024-12-16 15:59] LABS: HCT 43.5 % (36.0-46.0); HGB 14.5 g/dL (11.2-15.7); MCH 31.4 pg (27.0-33.0); MCHC 33.3 % (32.0-36.0); MCV 94 fL (80-95); MPV 11.0 fL (8.0-11.0); Platelet Count 227 10^3/uL (130-400); RBC 4.62 10^6/uL (3.93-5.22); RDW 11.9 % (11.7-14.6); RDW-SD 41.1 fL; WBC 4.14 10^3/uL (4.4-10.8)
[2024-12-16 16:37] LABS: ALT 37 U/L (14-59); AST 24 U/L (15-37); Albumin 4.2 g/dL (3.4-5.0); Alkaline Phosphatase 83 U/L (46-116); Anion Gap 7.0 mmol/L (3-11); BUN 13 mg/dL (7-18); Bilirubin, Total 0.5 mg/dL (0.2-1.0); CO2 30.0 mmol/L (21.0-32.0); Calcium 9.4 mg/dL (8.5-10.1); Calculated LDL 130 mg/dL (<100); Chloride 103 mmol/L (98-107); Cholesterol 222 mg/dL (<200); Estimated GFR 79.22 (mL/min/1.73m2); Glucose 88 mg/dL (74-106); HDL Cholesterol 77 mg/dL (>or=50); Potassium 5.1 mmol/L (3.5-5.1); Sodium 140 mmol/L (136-145); TSH 5.72 uIU/mL (0.36-3.74); Total Protein 8.1 g/dL (6.4-8.2); Triglyceride 78 mg/dL (<150); Vitamin D 25 Total 36 ng/mL (30-100)
== END 2024-12-16 16:33 | disposition home or self-care (01) ==
LOC: NCHCN 16:32
PROVIDERS: PCP Family Medicine; Visit Provider Family Medicine
DX: M19.90 Unspecified osteoarthritis, unspecified site (principal); Z13.220 Encounter for screening for lipoid disorders; E03.9 Hypothyroidism, unspecified; I10 Essential (primary) hypertension; Z79.899 Other long term (current) drug therapy
CPT/HCPCS: 80053; 80061; 82306; 85027; 84443